=== PATIENT | male | born 1980 | race Caucasian/White ===

== ENCOUNTER 2018-02-02 13:10 | Emergency (ER) | payer SELFPAY, OTHER | END 2018-02-02 16:36 | disposition home or self-care (01) | LOC: FTE 13:10 | DX: J32.9 Chronic sinusitis, unspecified (principal) | CPT/HCPCS: 70450; 99284-25 ==

== ENCOUNTER 2018-04-26 03:12 | Emergency (ER) | payer MEDICAID ==
[2018-04-26] MEDS: predniSONE 50 MG TAB PO (04:24)
[2018-04-26] MEDS: ACETAMINOPHEN 325 MG TAB PO (04:24)
[2018-04-26] MEDS: KETOROLAC 60 MG INJ IM (04:26)
[2018-04-26] MEDS: CLINDAMYCIN 600 MG INJ IM (04:29)
== END 2018-04-26 05:25 | disposition home or self-care (01) ==
LOC: FTE 03:12
DX: J02.9 Acute pharyngitis, unspecified (principal)
CPT/HCPCS: 96372; 99284-25

== ENCOUNTER 2019-02-13 08:13 | Emergency (ER) | payer SELFPAY, MEDICAID | END 2019-02-13 09:04 | disposition home or self-care (01) | LOC: FTE 09:04 | DX: K11.20 Sialoadenitis, unspecified (principal) | CPT/HCPCS: 99283 ==